=== PATIENT | female | born 1970 | race Caucasian/White ===

== ENCOUNTER 2024-07-13 10:50 | Emergency (ER) | payer OTHER, SELFPAY ==
--- NOTE | ~2024-07-13 | XR_ITS ---
EXAMINATION: XR SHOULDER, LEFT CLINICAL INFORMATION: fall, pain COMPARISON: None available. TECHNIQUE: AP external rotation, Grashey, scapular Y, and axillary views of the left shoulder. FINDINGS: No acute cortical disruption or malalignment. No lytic or blastic lesions. Degenerative changes in the greater tuberosity. XR/XR shoulder LT min 2V IMPRESSION: No acute fracture or dislocation. Electronically signed by: Nishant Crowe MD 07/13/2024 11:50 AM EDT
--- NOTE | ~2024-07-13 | CT_ITS ---
EXAMINATION: CT CERVICAL SPINE WITHOUT CONTRAST CLINICAL INFORMATION: Status post fall. Mid neck pain COMPARISON: None available. TECHNIQUE: Contiguous axial images through the cervical spine using 3 mm collimation with bone and soft tissue algorithm. Sagittal and coronal reformatted images acquired. This CT examination was performed using dose optimization techniques as appropriate, variously including the following: *Automated exposure control *Adjustment of mA and/or kV according to patient size (this includes techniques or standardized protocols for targeted exams where dose is matched to indication/reason for exam; i.e. extremities or head) *Use of iterative reconstruction technique DLP: 343 mGy centimeter. FINDINGS: Limited by patient's motion artifact. Craniocervical junction is intact. Degenerative changes in the periodontal C1 region. C1 is intact. C2 is intact. C3 is intact. C4 is intact. C5 is intact. C7 is intact. No gross hematoma, prevertebral soft tissue compartment. No gross malalignment between the vertebral bodies or the facet joints. Tympanic cavities and mastoid cells are aerated. Osteopenia versus osteoporosis. CT/CT cervical spine wo IV con IMPRESSION: No acute fracture or trauma-related listhesis. Fleischner guidelines were followed. Electronically signed by: Nishant Crowe MD 07/13/2024 02:34 PM EDT
--- NOTE | ~2024-07-13 | XR_ITS ---
EXAMINATION: XR SHOULDER, RIGHT CLINICAL INFORMATION: fall, pain COMPARISON: None available. TECHNIQUE: AP external rotation, Grashey, scapular Y, and axillary views of the right shoulder. FINDINGS: No acute cortical disruption or malalignment. No lytic or blastic lesions. XR/XR shoulder RT min 2V IMPRESSION: No acute fracture or dislocation. Electronically signed by: Nishant Crowe MD 07/13/2024 12:05 PM EDT
[2024-07-13 11:26] VITALS: BP 128/47; PULSE 66; RESP 16; TEMP 37; O2SAT 96; BMI 28.0
--- NOTE | 2024-07-13 11:27 | ED_ITS ---
HPI - Fall General Chief Complaint: Fall Stated Complaint: fell couple days ago Time Seen by Provider: 07/13/24 13:09 Source: patient, family and old records reviewed Mode of arrival: ambulatory Limitations: no limitations History of Present Illness ED Provider: FERNANDA HPI Narrative: 54 yo female with PMH of lupus, arthritis who fell backwards while helping a friend move a heavy cart she lost her balance and went backwards hitting neck, back of head, both shoulders. She has bruises on her legs but she can walk and move them without issue. No vomiting, seizures, LOC, confusion. She is not on thinners. She came today due to shoulder pain. She has not been confused. Fell 2 days ago. complaint: fall Onset (ago): day(s) (2) Fall from: standing Fall witnessed: yes, by family and yes, by bystander Place fall occurred: other Loss of consciousness: none Prolonged down time: no Symptoms prior to fall: none Context: tripped/slipped Location of injury: head and neck Location of injury - extremities: right: shoulder Severity: mild Quality: aching Associated symptoms (after fall): denies Related Data Previous Rx's ?Medication ?Instructions ?Recorded cyclobenzaprine 10 mg tablet 10 mg PO TID PRN muscle spasm #20 07/13/24 tabs lidocaine 5 % topical patch 1 patch topical DAILY #30 ea 07/13/24 Allergies Allergy/AdvReac Type Severity Reaction Status Date / Time No Known Allergies Allergy Verified 07/13/24 11:32 Review of Systems Review of Systems: Constitutional : No Fever, No Chills ENT/Mouth : No Ear Pain, No Hoarseness, No sore throat Eyes: No Eye Pain, No Swelling, No Redness, No Foreign Body Cardiovascular : No Chest Pain, No SOB Respiratory : No Cough, No Dyspnea Gastrointestinal : No Nausea, No Vomiting, No Diarrhea, No abdominal Pain Genitourinary : No Dysuria, No Hematuria Musculoskeletal : positive joint pain, No Myalgias, No Joint Swelling, pos neck Skin : No Skin lacerations, No rash Neuro : No Weakness, No Numbness, No Loss of Consciousness, No Dizziness, No Headache All other systems reviewed and are negative PMFSH Past Medical History Attestation statement: The following information was validated with the patient. Source: old records reviewed Medical History (Updated 07/13/24 @ 14:26 by Katharine Mooney DO) Arthritis Lupus (systemic lupus erythematosus) Social History Social History (Updated 07/13/24 @ 14:11 by Katharine Mooney DO) Patient Tobacco Use Status: Never used Tobacco Physical Exam Vital Signs: Vital Signs: Last Vital Signs Temp 98.6 F 07/13/24 11:26 Pulse 66 07/13/24 11:26 Resp 16 07/13/24 11:26 BP 128/47 L 07/13/24 11:26 Pulse Ox 96 07/13/24 11:26 O2 Del Method Room Air 07/13/24 11:26 BMI result Body Mass Index 28.0 Appearance: Alert. Oriented X3. No acute distress. Eyes: Pupils equal, round and reactive to light. ENT: Pharynx normal. no signs of basilar skull fracture on exam Neck: Normal inspection. has mild lower midline ttp no step offs CVS: Normal heart rate and rhythm. Pulses normal. Respiratory: No respiratory distress. Breath sounds normal. Abdomen: Soft and nontender. Skin: Skin warm and dry. Normal skin color. Normal skin turgor. Extremities: No lower extremity edema. No calf ttp contusions on both anterior shins normal ROM and no pain with axial loading. Neuro: Oriented X 3. No motor deficit. No sensory deficit. CN2-12 intact Course Course Course Narrative: This is an RME: Additional HPI, ROS, PE not included below will be deferred to primary provider. RME assessment and note performed by: Kalie Mayorga PA-C This is a [id number]-sfc-female, with a hx of arthritis, who presents to the ER wit h a complaint of headache, BL shoulder pain, and left leg pain s/p fall which occurred two days ago. She does report she struck her head, but denies LOC, dizziness, severe headache, nausea or vomiting. She is alert and oriented x 3. She is ambulatory. Scattered bruises seen in LE. TTP overlying BL shoulders. She was helping move boxes at her friends house and fell backwards. Plan: xrays Medical Decision Making Medical Decision Making MDM Narrative: 54 yo female with PMH of lupus, arthritis here with c/o neck pain, head pain, shoulder pain s/p mechanical fall - she is not on thinners she is UE NV intact, at this time she is [place] CT head rule but does have some midline neck ttp at this time xrays of both shoulders and CT cspine. If negative stable for DC. GCS 15 Differential Diagnosis Differential Diagnoses: The differential diagnosis associated with the presentation includes contusion, sprain, strain [place] CT head rule negative no need for miaging. Independent Interpretation I performed an independent interpretation of an: Plain X-Ray (no trauma) and CT Scan (no trauma) Radiology Impression Discussion of test interpretation with radiology: I have reviewed the radiologist's reading. Independent Historian Clinical information obtained from an independent historian. History obtained from or confirmed by: Other (family) External Record Review External record reviewed: Outpatient record Prescription Management I considered prescription management with: Pain Medication Discharge Plan Discharge Clinical Impression: Contusion Qualifiers: Encounter type: initial encounter Contusion area: lower leg Laterality: unspecified laterality Qualified Code(s): S80.10XA - Contusion of unspecified lower leg, initial encounter Neck strain Qualifiers: Encounter type: initial encounter Qualified Code(s): S16.1XXA - Strain of muscle, fascia and tendon at neck level, initial encounter Patient Disposition: Home, Self-Care Instructions: Cervical Strain (ED), Contusion in Adults (ED) Additional Instructions: xrays of shoulders are normal CT scan of cervical spine no broken bones or trauma at this time can use medications to relieve pain return for confusion, vomiting, numbness, weakness or any other concerns. Prescriptions: New cyclobenzaprine 10 mg tablet 10 mg PO TID PRN (Reason: muscle spasm) Qty: 20 0RF lidocaine 5 % adhesive patch,medicated 1 patch topical DAILY Qty: 30 0RF Rx Instructions: leave on most painful area for up to 12 hrs Print Language: [place]
[2024-07-13 14:31] VITALS: BP 113/53; PULSE 60; RESP 14; TEMP 36.3; O2SAT 97
[2024-07-13 15:27] VITALS: BP 113/53; PULSE 60; RESP 16; TEMP 36.3; O2SAT 97
== END 2024-07-13 15:29 | disposition home or self-care (01) ==
PROVIDERS: Emergency Provider Emergency Medicine; PCP Internal Medicine
DX: S80.12XA Contusion of left lower leg, initial encounter (principal); S80.11XA Contusion of right lower leg, initial encounter; S16.1XXA Strain of muscle, fascia and tendon at neck level, initial encounter; W01.0XXA Fall on same level from slipping, tripping and stumbling without subsequent striking against object, initial encounter; M25.512 Pain in left shoulder; M25.511 Pain in right shoulder; Y93.89 Activity, other specified; Y92.9 Unspecified place or not applicable; Y99.9 Unspecified external cause status
CPT/HCPCS: 72125; 73030; 99284

== ENCOUNTER → 2024-07-13 11:30 | Outpatient (BNV) | payer OTHER, SELFPAY | PROVIDERS: PCP Internal Medicine; Visit Provider Radiology Diagnostic Radiology | DX: M54.2 Cervicalgia (principal); M25.512 Pain in left shoulder; M25.511 Pain in right shoulder; W19.XXXA Unspecified fall, initial encounter | CPT/HCPCS: 72125; 73030 ==